=== PATIENT | female | born 1985 | race Caucasian/White ===

== ENCOUNTER 2017-05-28 14:16 | Emergency (ER) | payer BC ==
[~2017-05-28] VITALS: Ht 157.5 cm; Wt 82.5 kg
[2017-05-28 14:59] VITALS: BP 143/106
== END 2017-05-28 15:48 | disposition home or self-care (01) ==
LOC: ER 14:18
DX: J11.1 Influenza due to unidentified influenza virus with other respiratory manifestations (principal)
CPT/HCPCS: 99281